=== PATIENT | male | born 1970 | race Caucasian/White ===

== ENCOUNTER → 2020-01-23 08:53 | Outpatient (CLI) | payer BC, SELFPAY ==
--- NOTE | ~2020-01-23 | XR_ITS ---
EXAMINATION: XR shoulder RT min 2V DATE: 01/23/2020 09:11 INDICATION: Right shoulder pain. TECHNIQUE: 4 views of right shoulder were obtained. COMPARISON: None. FINDINGS: Bone alignment is normal. No fracture. Glenohumeral joint is normal. There is mild acromioc lavicular joint osteoarthritis. There are changes of anterior fusion procedure in cervicothoracic spi ne. IMPRESSION: 1. Mild acromioclavicular joint osteoarthritis. Reviewed, dictated and finalized at location B.
== END ==
PROVIDERS: PCP Physician Assistant; Visit Provider Physician Assistant
DX: M19.011 Primary osteoarthritis, right shoulder (principal)
CPT/HCPCS: 73030

== ENCOUNTER 2023-01-24 08:36 | Outpatient (CLI) | payer BC, SELFPAY ==
--- NOTE | ~2023-01-24 | XR_ITS ---
EXAMINATION: XR UGI wo kub DATE: 01/24/2023 09:33 INDICATION: Dysphagia TECHNIQUE: The patient drank thick barium, gas-producing crystals, and thin barium. A total of 648 fl uoroscopic images of the esophagus, stomach, and proximal small bowel were obtained. Fluoroscopy expo sure time was 1.5 minutes. COMPARISON: None. FINDINGS: The esophagus is normal without mass or stricture. Esophageal motility is normal. Anterior plate and screw fixation as well as bone graft cages for anterior spinal fusion at C5-C7. No signific ant mass effect upon the more anterior esophagus. There is no hiatal hernia. There was no gastroesoph ageal reflux with provocative maneuvers. The stomach and proximal small bowel are normal. IMPRESSION: 1. Instrumented C5-C7 anterior spinal fusion. Otherwise unremarkable upper GI study. Reviewed, dictated and finalized at location A. IMPRESSION: 1. Instrumented C5-C7 anterior spinal fusion. Otherwise unremarkable upper GI s tudy.
== END 2023-01-24 08:37 | disposition home or self-care (01) ==
PROVIDERS: PCP Physician Assistant; Visit Provider Physician Assistant
DX: R13.19 Other dysphagia (principal); M43.22 Fusion of spine, cervical region
CPT/HCPCS: 74240

== ENCOUNTER → 2023-04-24 14:27 | Outpatient (CLI) | payer BC, SELFPAY ==
--- NOTE | ~2023-04-24 | MR_ITS ---
MRI of the right shoulder Technique: Axial proton-density fat-sat images, coronal proton density fat-sat and T2 fat-sat images, and sagittal T1-weighted and T2 fat-sat images were acquired. Clinical History: Pain Findings: There is no significant degenerative change of the AC joint. Coracoclavicular, coracoacromi al, and coracohumeral ligaments are intact. There is nonspecific edema in the rotator interval region . There is focal full-thickness tear at the distal supraspinatus tendon insertion, with the area of tea r measuring 9 x 9 mm in extent. There is background of [id number] supraspinatus and infraspinat us tendinosis. Subscapularis tendon is intact with minimal tendinosis. Tendon of long head of the bic eps is intact. No labral tear identified. Inferior glenohumeral ligament is intact. No degenerative change or effusion of the glenohumeral join t. There is minimal fluid in the subacromial/subdeltoid bursa. No muscle atrophy or edema. Impression: 9 x 9 mm full-thickness tear of the distal supraspinatus tendon insertion, with background of mild ro tator cuff tendinosis. Nonspecific edema in the rotator interval. This could be related to underlying rotator cuff tear, cou ld reflect additional injury at the biceps marika mechanism region. Reviewed, dictated and finalized at [facility]. [employer] Impression: 9 x 9 mm full-thickness tear of the distal supraspinatus tendon insertion, with background of mild rotator cuff tendinosis. Nonspecific edema in the rotator interval. This could be related to underlying rotator cuff tear, could reflect additional injury at the biceps marika mechani sm region.
== END ==
PROVIDERS: PCP Physician Assistant Surgical; Visit Provider Physician Assistant Surgical
DX: M25.511 Pain in right shoulder (principal)
CPT/HCPCS: 73221